=== PATIENT | female | born 1970 | race Caucasian/White ===

== ENCOUNTER 2018-04-13 09:50 | Observation (INO) ==
[2018-04-13] MEDS ORDERED: Naloxone 0.4 MG/ML INJ IVP PRN (12:22)
--- NOTE | 2018-04-13 12:24 | Internal Med History&Physical ---
Date of Encounter: 04/13/18 Internal Medicine - H&P: HPI History of present illness: Ms. Juarez is a 47 year old female Past Med Surg Social Fam HX - Past Medical History Medical history: asthma, GERD, hyperlipidemia, hypertension, migraine, thyroid disease, TIA, other Additional medical history: IBS, LUPUS Psychiatric history: anxiety, bipolar, depression - Past Surgical History Surgical History: herniorrhaphy, orthopedic, other Additional surgical history: carpal tunnel to right. left knee surgery. ablasion to female parts, tubal ligation. surgery on mouth, teeth pulled. Hernia surgery RLQ. - Social History Smoking Status: Current every day smoker Packs per day: 1 Smokeless Tobacco Status: No Alcohol use: none Drug use: none - Family History Mother Hx Family Cardiac Disorders: Yes (COPD, enlarged heart) Hx Family Musculoskeletal Disorders: Yes Hx Family Psychosocial Disorders: Yes Hx Family Medical Disorders: Yes (severe diabetic) Father Hx Family Cardiac Disorders: Yes (2 triple bypass, TIA) Internal Medicine - H&P: Meds Albuterol Sulfate [Ventolin Hfa] 1 puff IH QID 03/18/16 [History] Clopidogrel [Plavix] 75 mg PO DAILY 03/18/16 [History] Escitalopram [Lexapro] 10 mg PO HS 03/18/16 [History] Fluticasone Propionate [Flovent Hfa] 12 gm IH BID 03/18/16 [History] Levothyroxine [Synthroid] 75 mcg PO QAM 03/18/16 [History] raNITIdine HCl [Zantac] 150 mg PO QAM 03/18/16 [History] Albuterol Neb [Proventil Neb] 2.5 mg IH Q4HR #40 vial.neb 10/31/16 [Rx] Promethazine [Phenergan] 25 mg PO Q6HR PRN #14 tablet 11/23/16 [Rx] Amoxicillin 500 mg PO TID #30 tablet 06/11/17 [Rx] Guaifenesin [Mucinex] 600 mg PO BID PRN #20 tab.er.12h 06/11/17 [Rx] Guaifenesin [Mucinex] 600 mg PO BID PRN #20 tab.er.12h 06/11/17 [Rx] Naproxen [Naprosyn] 500 mg PO BID PRN #20 tablet 06/11/17 [Rx] HYDROcodone/Acet 5/325 mg [[place] 5-325 mg] 1 tab PO Q4H PRN 3 Days #14 tab 04/13 [Rx] 3 Allergy/AdvReac Type Severity Reaction Status Date / Time azithromycin Allergy Intermediate Hives Verified 11/23/16 05:21 bacitracin Allergy Rash Verified 04/13/18 06:21 sulfamethoxazole Allergy Itching Verified 11/23/16 05:21 [From Bactrim] trimethoprim [From Bactrim] Allergy Itching Verified 11/23/16 05:21 acetaminophen [From Percocet] AdvReac Itching Verified 11/23/16 05:21 codeine AdvReac See Verified 11/23/16 05:21 Comments diazepam [From Valium] AdvReac Dizziness Verified 11/23/16 05:21 Oxycodone [From Percocet] AdvReac Itching Verified 11/23/16 05:21 msg Allergy See Uncoded 11/23/16 05:21 Comments All Systems PM: A 10-system review of systems was performed and is negative for pertinent findings except as documented above in the HPI. - Constitutional Vitals: Temp Pulse Resp BP Pulse Ox 98.2 F 80 19 118/69 97 04/13/18 11:40 04/13/18 11:40 04/13/18 11:40 04/13/18 11:40 04/13/18 11:40 - Time Spent With Patient Total time spent is greater than 50% in coordination of care (as documented) at patient's floor/unit and/or counseling patient:
[2018-04-13] MEDS ORDERED: traMADol 50 MG TABLET PO PRN (12:57)
[2018-04-13] MEDS ORDERED: Acetaminophen 325 MG TABLET PO PRN (12:57)
[2018-04-13 13:07] LABS: Basophils % 0.4 %; Eosinophils % 0.2 %; Hematocrit 42.3 % (35.3-44.9); Hemoglobin 14.1 g/dL (11.5-15.4); Immature Granulocytes % 0.3 % (0-4); Lymphocytes # 2.1 K/mcL (0.6-4.6); Lymphocytes % 22.4 %; Mean Corpuscular HGB Conc 33.3 g/dL (31.6-35.5); Mean Corpuscular Hemoglobin 28.8 pg (28.0-33.3); Mean Corpuscular Volume 86.5 fL (83.0-100.0); Mean Platelet Volume 11.4 fL (9.4-12.4); Monocytes # 0.8 K/mcL (0.0-1.3); Monocytes % 8.7 %; Neutrophils # 6.4 K/mcL (1.6-8.9); Platelet Count 185 K/mcL (140-400); Red Blood Count 4.89 M/mcL (3.82-4.97)
--- NOTE | 2018-04-13 13:09 | Internal Med History&Physical ---
<EderJuan Apple - Last Filed: 04/13/18 15:44> Date of Encounter: 04/13/18 Time of Encounter: 12:30 Internal Medicine - H&P: HPI Chief complaint: Headache/N/V/Photophobia Admitted From: Intrahospital Transfer Plans for Post Hospital Care: Home History of present illness: Ms. Juarez is a 47 year old female w/PMH of asthma, GERD, HLD, HTN, migraine, thyroid disease, TIAs, IBS, and lupus presents from [facility] ED with chief complaint of headache, nausea, vomiting, photophobia, and sensitivity to sounds which began yesterday. Patient states she has history of migraines but these symptoms are not like previous migraines symptoms. No alleviating or aggravating factors. Associated sx: chills and fever. Pt. reports sinus congestion and right ear pain/neck pain but denies sick contacts, recent illness , cough, chest congestion, chest pain, shortness of breath abdominal pain, diarrhea, constipation, numbness, tingling, dizziness, lightheadedness, confusion, stroke/TIA sx, pre-syncope, and syncope. Past Med Surg Social Fam HX - Past Medical History Source: patient, old records reviewed, obtained from family Medical history: asthma, GERD, hyperlipidemia, hypertension, migraine, thyroid disease, TIA, other Additional medical history: IBS, LUPUS Psychiatric history: anxiety, bipolar, depression - Past Surgical History Surgical History: herniorrhaphy, orthopedic, other Additional surgical history: carpal tunnel to right. left knee surgery. ablasion to female parts, tubal ligation. surgery on mouth, teeth pulled. Hernia surgery RLQ. - Social History Smoking Status: Current every day smoker Packs per day: 1/2 PPD Smokeless Tobacco Status: No Alcohol use: none Drug use: none Current living situation: Home, With Family Activity Level: Independent ambulation Recent Out of Country Travel Within the Last 8 Weeks: No Exposure or Possible Exposure to Illness During Travel: No - Family History Mother Race: Family Member Ethnicity: Non- Living Status: Age at : 70 Cause of : DM complications Hx Family Cardiac Disorders: Yes (COPD, enlarged heart) Hx Family Endocrine Disorder: Yes (DM) Hx Family Musculoskeletal Disorders: Yes (Degenerative disc disease) Hx Family Psychosocial Disorders: Yes Hx Family Medical Disorders: Yes (severe diabetic) Father Race: Family Member Ethnicity: Non- Living Status: Age at : 71 Cause of : PR Hx Family Cardiac Disorders: Yes (2 triple bypass, TIA, PR) Hx Family Neurologic Disorders: Yes (TIAs) Brother Race: Family Member Ethnicity: Non- Living Status: Still Living Hx Family Cardiac Disorders: Yes (PR) Sister History Unknown: Yes Race: Family Member Ethnicity: Non- Living Status: Still Living Internal Medicine - H&P: Meds Albuterol Sulfate [Ventolin Hfa] 1 puff IH QID 03/18/16 [History] Clopidogrel [Plavix] 75 mg PO DAILY 03/18/16 [History] Escitalopram [Lexapro] 10 mg PO HS 03/18/16 [History] Fluticasone Propionate [Flovent Hfa] 12 gm IH BID 03/18/16 [History] Levothyroxine [Synthroid] 75 mcg PO QAM 03/18/16 [History] raNITIdine HCl [Zantac] 150 mg PO QAM 03/18/16 [History] Albuterol Neb [Proventil Neb] 2.5 mg IH Q4HR #40 vial.neb 10/31/16 [Rx] Promethazine [Phenergan] 25 mg PO Q6HR PRN #14 tablet 11/23/16 [Rx] Amoxicillin 500 mg PO TID #30 tablet 06/11/17 [Rx] Guaifenesin [Mucinex] 600 mg PO BID PRN #20 tab.er.12h 06/11/17 [Rx] Guaifenesin [Mucinex] 600 mg PO BID PRN #20 tab.er.12h 06/11/17 [Rx] Naproxen [Naprosyn] 500 mg PO BID PRN #20 tablet 06/11/17 [Rx] HYDROcodone/Acet 5/325 mg [[place] 5-325 mg] 1 tab PO Q4H PRN 3 Days #14 tab 04/13 [Rx] 3 Allergy/AdvReac Type Severity Reaction Status Date / Time azithromycin Allergy Intermediate Hives Verified 11/23/16 05:21 bacitracin Allergy Rash Verified 04/13/18 06:21 sulfamethoxazole Allergy Itching Verified 11/23/16 05:21 [From Bactrim] trimethoprim [From Bactrim] Allergy Itching Verified 11/23/16 05:21 acetaminophen [From Percocet] AdvReac Itching Verified 11/23/16 05:21 codeine AdvReac See Verified 11/23/16 05:21 Comments diazepam [From Valium] AdvReac Dizziness Verified 11/23/16 05:21 Oxycodone [From Percocet] AdvReac Itching Verified 11/23/16 05:21 msg Allergy See Uncoded 11/23/16 05:21 Comments All Systems PM: A 10-system review of systems was performed and is negative for pertinent findings except as documented above in the HPI. - Constitutional Constitutional: as per HPI, chills, no fever(s), no night sweats - EENT Eyes: as per HPI, photophobia, no change in vision, no discharge, no pain Ears: no ear discharge, no ear pain, no tinnitus Nose, mouth and throat: no dysphagia, no nasal discharge, no neck pain, no sore throat - Breasts Breasts: as per HPI - Cardiovascular Cardiovascular ROS IM: no chest pain, no diaphoresis, no dyspnea, no lightheadedness, no palpitations, no syncope - Respiratory Respiratory: no cough, no dyspnea, no wheezing, no excessive phlegm production - Gastrointestinal Gastrointestinal: as per HPI, nausea, vomiting, no abdominal pain, no diarrhea, no hematemesis, no hematochezia, no melena - Genitourinary Genitourinary: no change in urinary stream, no dysuria, no flank pain, no hematuria Menstruation: as per HPI - Musculoskeletal Musculoskeletal ROS IM: no numbness, no tingling - Integumentary Integumentary IM: no rash, no unusual bruising - Neurological Neurological ROS: as per HPI, dizziness, headache(s), other visual disturbances (Photophobia), no confusion, no convulsions, no focal weakness, no numbness, no tingling, no tremor(s) - Psychiatric Psychiatric: as per HPI, anxiety, depression - Endocrine Endocrine IM: as per HPI - Hematologic/Lymphatic Hematologic/Lymphatic: no easy bruising - Allergic/Immunologic Allergic/Immunologic: as per HPI - Constitutional Vitals: Temp Pulse Resp BP Pulse Ox 98.2 F 80 19 118/69 97 04/13/18 11:40 04/13/18 11:40 04/13/18 11:40 04/13/18 11:40 04/13/18 11:40 General appearance: Present: cooperative, mild distress (Headache, photophobia, sound sensitivity), A&O X 3, obese, answers questions appropriately - Head Head exam: Present: atraumatic, normocephalic - Eye Eye exam: Present: PERRL, conjuntiva pink, sclera anicteric Pupils: Present: PERRL - ENT ENT exam: Present: normal exam - Neck Neck exam general surgery: Present: supple, trachea midline. Absent: lymphadenopathy - Respiratory Respiratory exam: Present: CTAB. Absent: accessory muscle use, rales, rhonchi, wheezes - Cardiovascular Cardiovascular exam: Present: RRR, +S1, +S2. Absent: diastolic murmur, gallop, rubs, systolic murmur - GI/Abdominal GI/Abdominal exam: Present: normal bowel sounds, soft, no peritoneal signs. Absent: distended, tenderness - Rectal Rectal exam: Present: deferred - Additional comments: exam deferred. - Extremities Exam Extremities exam: Present: warm, radial pulses palpable and symmetrical. Absent : calf tenderness, cyanotic, pedal edema - Back Exam Back exam: Present: normal inspection - Neurological Exam Neurological exam: Present: alert, CN II-XII intact, oriented X3, no focal deficits. Absent: pronater drift, facial droop, speech deficit - Psychiatric Psychiatric exam: Present: anxious - Skin Skin exam: Present: dry, intact Internal Med - H&P Results - Labs CBC & Chem 7: 04/13/18 12:47 04/13/18 12:47 - Diagnostic Studies CT scan - head Additional comments: EXAMINATION: CT OF THE HEAD WITHOUT CONTRAST 04/13/2018 6:51 am TECHNIQUE: CT of the head was performed without the administration of intravenous contrast. Dose modulation, iterative reconstruction, and/or weight based adjustment of the mA/kV was utilized to reduce the radiation dose to as low as reasonably achievable. COMPARISON: 06/18/2016 HISTORY: ORDERING SYSTEM PROVIDED HISTORY: Headache Initial evaluation, new onset headaches FINDINGS: BRAIN/VENTRICLES: There is parenchymal volume loss from remote infarct right frontal lobe unchanged from prior exam. No mass or hemorrhage is seen intracranially. No midline shift is noted. Atherosclerotic vascular calcifications are present intracranially. ORBITS: The visualized portion of the orbits demonstrate no acute abnormality. SINUSES: The visualized paranasal sinuses and mastoid air cells demonstrate no acute abnormality. SOFT TISSUES/SKULL: No acute abnormality of the visualized skull or soft tissues. 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 No acute intracranial abnormality seen. D/ / 04/13/2018 07:39:33 Haris Mejia MD / renata Interpreting Provider: Haris Mejia MD - Assessment and plan (1) Headache Current Visit: Yes Status: Acute Assessment and plan: Acute headache accompanying current N/V and photophobia. Concern for aseptic/ viral meningitis versus bacterial meningitis. Elevated CSF WBC today, however glucose not depressed and WBC not as high as expected w/bacterial meningitis. Pt. reports sx began yesterday. Patient states she has history of migraines but these symptoms are not like previous migraines symptoms. No alleviating or aggravating factors. Pt. states that she has never had these sx before to this severity. ID consulted by [facility] and confirmed consult w/Dr. Larkin who will see pt. and determine need for blood cultures and possible abx coverage. I appreciate the consult and recommendations as always. Pt. discussed w/Dr. Carmen who agrees w/plan of care. Pt. is high risk for further morbidity and complications d/t risk for meningitis of unknown etiology, current sx w/o resolve, hx, and risk factors. Observation. Qualifiers: Headache type: unspecified Headache chronicity pattern: acute headache Intractability: intractable Qualified Code(s): R51 - Headache (2) Nausea and vomiting Current Visit: Yes Status: Acute Assessment and plan: Acute nausea and vomiting r/t current sx. IVP Phenergan 12.5 mg Q4HR PRN. Monitor I&O. Continue pts. PO Zantac. Qualifiers: Vomiting type: cyclical vomiting Vomiting Intractability: non-intractable Qualified Code(s): G43.A0 - Cyclical vomiting, not intractable (3) Photophobia of both eyes Current Visit: Yes Status: Acute Assessment and plan: Acute photophobia accompanying current sx. Supportive measures. IVP Phenergan 12.5 mg Q4HR PRN for N/V. Tylenol 650 mg Q6HR PRN for mild pain. Ultram for moderate pain d/t pts. allergy to codeine. (4) Asthma Current Visit: Yes Status: Chronic Assessment and plan: Hx of chronic intermittent asthma. Currently stable. Continue pts. inhalers. Qualifiers: Asthma severity: mild Asthma persistence: intermittent Asthma complication type: unspecified Qualified Code(s): J45.20 - Mild intermittent asthma, uncomplicated (5) GERD (gastroesophageal reflux disease) Current Visit: Yes Status: Chronic Assessment and plan: Hx of chronic GERD. Continue pts. PO Zantac. IVP Phenergan for N/V. Add IVP Protonix if pt. cannot tolerate PO Zantac. Qualifiers: Esophagitis presence: esophagitis presence not specified Qualified Code(s) : K21.9 - Gastro-esophageal reflux disease without esophagitis (6) HLD (hyperlipidemia) Current Visit: Yes Status: Chronic Assessment and plan: Hx of chronic HLD. Lipid panel in a.m. labs. Pt. does not currently take a statin. Consider adding Lipitor to home medications if warranted by lipid panel results. Qualifiers: Hyperlipidemia type: pure hypercholesterolemia Qualified Code(s): E78.00 - Pure hypercholesterolemia, unspecified; E78.0 - Pure hypercholesterolemia (7) HTN (hypertension) Current Visit: Yes Status: Chronic Assessment and plan: Hx of chronic HTN. Monitor pt. and VS. Hydralazine 10 mg Q6HR PRN w/parameters ordered. Qualifiers: Hypertension type: essential hypertension Qualified Code(s): I10 - Essential (primary) hypertension (8) Thyroid disease Current Visit: Yes Status: Chronic Assessment and plan: Hx of chronic thyroid disease. TSH and Free T4 in a.m. labs. Continue pts. Synthroid. (9) Hx-TIA (transient ischemic attack) Current Visit: Yes Status: Chronic Assessment and plan: Hx of TIAs. Currently stable. (10) DVT prophylaxis Current Visit: Yes Status: Acute Assessment and plan: Heparin 5,000 units SQ Q8HR for DVT prophylaxis. Monitor pt. for signs of bleeding. - Time Spent With Patient Total time spent is greater than 50% in coordination of care (as documented) at patient's floor/unit and/or counseling patient: 25 - 35 minutes <Ghanem,Pavel Rheem - Last Filed: 04/13/18 15:52> Date of Encounter: 04/13/18 Internal Medicine - H&P: HPI History of present illness: Ms. Juarez is a 47 year old female All Systems PM: A 10-system review of systems was performed and is negative for pertinent findings except as documented above in the HPI. - Constitutional Vitals: Temp Pulse Resp BP Pulse Ox 98.2 F 80 19 118/69 97 04/13/18 11:40 04/13/18 11:40 04/13/18 11:40 04/13/18 11:40 04/13/18 11:40 Exam: Gen: NAD CVS: RRR Neuro: no focal defects, CN II-XII in tact Lungs; CTAB Abd: NT/ND Ext: no edema Internal Med - H&P Results - Labs CBC & Chem 7: 04/13/18 12:47 04/13/18 12:47 Labs: Short CBC 04/13/18 Range/Units 12:47 WBC 9.4 (4.3-11.1) K/mcL Hgb 14.1 (11.5-15.4) g/dL Hct 42.3 (35.3-44.9) % Plt Count 185 (140-400) K/mcL Neutrophils # 6.4 (1.6-8.9) K/mcL BMP 04/13/18 12:47 Sodium 138 Potassium 3.5 Chloride 101 Carbon Dioxide 29 BUN 9 Creatinine 0.57 L Glucose 86 Calcium 9.8 - Assessment and plan (1) Headache Current Visit: Yes Status: Acute Qualifiers: Headache type: unspecified Headache chronicity pattern: acute headache Intractability: intractable Qualified Code(s): R51 - Headache (2) Nausea and vomiting Current Visit: Yes Status: Acute Qualifiers: Vomiting type: cyclical vomiting Vomiting Intractability: non-intractable Qualified Code(s): G43.A0 - Cyclical vomiting, not intractable (3) Photophobia of both eyes Current Visit: Yes Status: Acute (4) Asthma Current Visit: Yes Status: Chronic Qualifiers: Asthma severity: mild Asthma persistence: intermittent Asthma complication type: unspecified Qualified Code(s): J45.20 - Mild intermittent asthma, uncomplicated (5) GERD (gastroesophageal reflux disease) Current Visit: Yes Status: Chronic Qualifiers: Esophagitis presence: esophagitis presence not specified Qualified Code(s) : K21.9 - Gastro-esophageal reflux disease without esophagitis (6) HLD (hyperlipidemia) Current Visit: Yes Status: Chronic Qualifiers: Hyperlipidemia type: pure hypercholesterolemia Qualified Code(s): E78.00 - Pure hypercholesterolemia, unspecified; E78.0 - Pure hypercholesterolemia (7) HTN (hypertension) Current Visit: Yes Status: Chronic Qualifiers: Hypertension type: essential hypertension Qualified Code(s): I10 - Essential (primary) hypertension (8) Thyroid disease Current Visit: Yes Status: Chronic (9) Hx-TIA (transient ischemic attack) Current Visit: Yes Status: Chronic (10) DVT prophylaxis Current Visit: Yes Status: Acute - Time Spent With Patient Total time spent is greater than 50% in coordination of care (as documented) at patient's floor/unit and/or counseling patient: - Attending Attestation I have performed an independent evaluation of patient and agree with the Nurse Practitioner's assessment and plan. 47 year old female with history of migraines presents for worsening of headaches. LP done in ED at [facility] showed elevated protein and borderline low glucose. ID was consulted at [facility] and recommended observation. On exam, there is no focal neuro defecits. Will consult ID and await for recommendations. If symptoms worsen, will get Neurology to evaluate.
[2018-04-13 13:25] LABS: BUN/Creatinine Ratio 16 (6-26); Blood Urea Nitrogen 9 mg/dL (6-20); Calcium 9.8 mg/dL (8.6-10.3); Carbon Dioxide 29 mEq/L (23-29); Chloride 101 mEq/L (98-107); Glucose 86 mg/dL (70-105); Osmolality,Calculated 284 (280-300); Potassium 3.5 mEq/L (3.5-5.1); Sodium 138 mEq/L (136-145); eGFR For Non-African Americans > 60 (> 60)
--- NOTE | 2018-04-13 13:25 | Infectious Disease Consult ---
Date of Encounter: 04/13/18 Time of Encounter: 13:20 Assessment and Plan (1) Meningitis Status: Acute Assessment and plan: Likely aseptic meningitis as the clinical picture is not consistent with bacterial meningitis. No sepsis criteria. Status post bedside LP with TNC 294 with 8% segmented neutrophils and 59% lymphocytes. Protein mildly elevated at 127, glucose normal. Gram stain negative. Culture pending. Discontinue droplet precautions. No indication for antibiotics at this time. Clinical picture not consistent with VZV or HSV meningo/encephalitis. CT head negative. Check RIP. Requested nursing to collect DINA. Continue supportive care. (2) Headache Status: Acute Assessment and plan: Secondary to aseptic meningitis. No evidence of encephalitis. CT head negative. Pain management per the primary team. Qualifiers: Headache type: unspecified Headache chronicity pattern: acute headache Intractability: intractable Qualified Code(s): R51 - Headache (3) Asthma Status: Chronic Qualifiers: Asthma severity: mild Asthma persistence: intermittent Asthma complication type: unspecified Qualified Code(s): J45.20 - Mild intermittent asthma, uncomplicated (4) GERD (gastroesophageal reflux disease) Status: Chronic Qualifiers: Esophagitis presence: esophagitis presence not specified Qualified Code(s) : K21.9 - Gastro-esophageal reflux disease without esophagitis (5) HLD (hyperlipidemia) Status: Chronic Qualifiers: Hyperlipidemia type: pure hypercholesterolemia Qualified Code(s): E78.00 - Pure hypercholesterolemia, unspecified; E78.0 - Pure hypercholesterolemia (6) HTN (hypertension) Status: Chronic Qualifiers: Hypertension type: essential hypertension Qualified Code(s): I10 - Essential (primary) hypertension (7) Thyroid disease Status: Chronic (8) Hx-TIA (transient ischemic attack) Status: Chronic Infectious Disease HPI - Data of Consult Patient: new to practice Consult date: 04/13/18 Requesting Physician: Chani Carmen MD Primary Care Provider: Beronica Rivera CNP - Consult Narrative Reason for consult: Meningitis History of present illness: Ms. Juarez is a 47 year old female with a past medical history of asthma, GERD, hyperlipidemia, hypertension, migraine headaches, TIA, hypothyroidism, anxiety, and depression. The patient was admitted to the hospital April 13 for headache. We are consulted April 13 for further recommendations for meningitis. Briefly, the patient is a 47-year-old female with a past medical history as stated above. The patient presented to [facility] emergency department with complaints of a one-day history of severe frontal and occipital headache, worse with cough. She also reports a few days of right ear and neck pain with sinus congestion. She states she developed a headache yesterday with associated nausea and vomiting and photophobia. Upon arrival to the ER, the patient was afebrile. She was hemodynamically stable. No labs were completed. She had a CT of the head that was negative. She received adequate pain medication without control of her pain, therefore, an LP was performed at the bedside. CSF had a total neutrophil count of 294 with 8% segmented neutrophils and 59% lymphocytes. Protein was elevated at 127 with a normal glucose. The Gram stain is preliminarily negative. She was transferred here for further evaluation. Since admission, the patient has remained afebrile hemodynamically stable. Labs have been ordered and are pending. She is not currently on any antibiotics. We have been asked to evaluate and make further recommendations. During my exam today, the patient endorses the history as stated above. She reports subjective fevers and chills with rigors at home, but states her thermometer is broken. She reports the headache is persistent and worse with cough or straining. She states the pain is throbbing to the front and back of her head. She states she has photophobia, nausea, and vomiting has not been able to keep much down. She denies abdominal pain. She does report that she urinates frequently, but denies any dysuria or hematuria. She reports back pain at the site of the LP, but otherwise denies pain in her back or extremities. She reports a history of eczema, but denies any other skin rashes. She denies any oral lesions. She denies any weakness or dizziness or confusion. The patient lives at home with her . She does not work outside the home. She smokes about half pack cigarettes per day. She denies any alcohol or illicit drug use. She denies any chronic infectious diseases. She states she recently traveled to [place] to visit family. She does have dogs and cats with which she has direct contact. She denies any known sick contacts. CC: Chani Carmen MD Past Med Surg Social Fam HX - Past Medical History Attestation: Yes The following information was validated with the patient. Source: patient, old records reviewed, nursing notes reviewed Medical history: asthma, GERD, hyperlipidemia, hypertension, migraine, thyroid disease, TIA, other Additional medical history: IBS, LUPUS Psychiatric history: anxiety, bipolar, depression - Past Surgical History Surgical History: herniorrhaphy, orthopedic, other Additional surgical history: carpal tunnel to right. left knee surgery. ablasion to female parts, tubal ligation. surgery on mouth, teeth pulled. Hernia surgery RLQ. - Social History Smoking Status: Current every day smoker Packs per day: 1/2 PPD Smokeless Tobacco Status: No Alcohol use: none Drug use: none Occupational status: unemployed Current living situation: Home, With Family Activity Level: Independent ambulation Recent Out of Country Travel Within the Last 8 Weeks: No Exposure or Possible Exposure to Illness During Travel: No - Family History Mother Race: Family Member Ethnicity: Non- Living Status: Age at : 70 Cause of : DM complications Hx Family Cardiac Disorders: Yes (COPD, enlarged heart) Hx Family Endocrine Disorder: Yes (DM) Hx Family Musculoskeletal Disorders: Yes (Degenerative disc disease) Hx Family Psychosocial Disorders: Yes Hx Family Medical Disorders: Yes (severe diabetic) Father Race: Family Member Ethnicity: Non- Living Status: Age at : 71 Cause of : IL Hx Family Cardiac Disorders: Yes (2 triple bypass, TIA, [place]) Hx Family Neurologic Disorders: Yes (TIAs) Brother Race: Family Member Ethnicity: Non- Living Status: Still Living Hx Family Cardiac Disorders: Yes ([place]) Sister History Unknown: Yes Race: Family Member Ethnicity: Non- Living Status: Still Living Infectious Disease-CN:Meds Albuterol Sulfate [Ventolin Hfa] 1 puff IH QID 03/18/16 [History] Clopidogrel [Plavix] 75 mg PO DAILY 03/18/16 [History] Escitalopram [Lexapro] 10 mg PO HS 03/18/16 [History] Fluticasone Propionate [Flovent Hfa] 1 puff IH BID 03/18/16 [History] Levothyroxine [Synthroid] 75 mcg PO QAM 03/18/16 [History] Albuterol Neb [Proventil Neb] 2.5 mg IH Q4HR #40 vial.neb 10/31/16 [Rx] Acetaminophen [Extra Strength Non-Aspirin] 1,000 mg PO BID PRN 04/13/18 [History ] Amlodipine Besylate 10 mg PO DAILY 04/13/18 [History] Aspirin Enteric Coated [Aspirin EC] 81 mg PO DAILY 04/13/18 [History] Atorvastatin Calcium [Lipitor] 80 mg PO HS 04/13/18 [History] Cholecalciferol (Vitamin D3) [Dialyvite Vitamin D] 5,000 unit PO DAILY 04/13/18 [History] Cyclobenzaprine [Flexeril] 10 mg PO HS PRN 04/13/18 [History] Lisinopril [Zestril] 40 mg PO DAILY 04/13/18 [History] Loratadine [Claritin] 10 mg PO DAILY 04/13/18 [History] Montelukast [Singulair] 10 mg PO HS 04/13/18 [History] Multivitamin-Min/Iron/FA/Vit K [Multi-Day Plus Minerals Tablet] 1 each PO DAILY 04/13/18 [History] Propranolol [Inderal] 10 mg PO BID 04/13/18 [History] Ranitidine HCl [Acid Customer Strategy Manager] 150 mg PO BID 04/13/18 [History] 3 Allergy/AdvReac Type Severity Reaction Status Date / Time azithromycin Allergy Intermediate Hives Verified 11/23/16 05:21 bacitracin Allergy Rash Verified 04/13/18 06:21 sulfamethoxazole Allergy Itching Verified 11/23/16 05:21 [From Bactrim] trimethoprim [From Bactrim] Allergy Itching Verified 11/23/16 05:21 acetaminophen [From Percocet] AdvReac Itching Verified 11/23/16 05:21 codeine AdvReac See Verified 11/23/16 05:21 Comments diazepam [From Valium] AdvReac Dizziness Verified 04/13/18 17:54 Oxycodone [From Percocet] AdvReac Itching Verified 11/23/16 05:21 msg Allergy See Uncoded 11/23/16 05:21 Comments All systems: reviewed and no additional remarkable complaints except as stated Exam - Constitutional Vitals: Temp Pulse Resp BP Pulse Ox 98.2 F 80 19 118/69 97 04/13/18 11:40 04/13/18 11:40 04/13/18 11:40 04/13/18 11:40 04/13/18 11:40 General appearance: cooperative, no acute distress, obese - Head Head exam: Present: atraumatic, normal inspection, normocephalic - Eye Eye exam: Present: EOMI, normal appearance, PERRL Pupils: Present: normal accommodation - ENT ENT exam: Present: mucous membranes moist - Neck Neck exam: Present: lymphadenopathy (Right anterior cervical lymphadenopathy noted.), meningismus (Pain with flexion of the neck.), normal inspection, tenderness (Posterior neck) - Respiratory Respiratory exam: Present: CTAB. Absent: rales, respiratory distress, rhonchi, wheezes - Cardiovascular Cardiovascular exam: Present: RRR, +S1, +S2 - GI/Abdominal GI/Abdominal exam: Present: normal bowel sounds, soft. Absent: distended, tenderness - Extremities Exam Extremities exam: Present: normal inspection. Absent: joint swelling, pedal edema, tenderness - Back Exam Back exam: Present: normal inspection. Absent: CVA tenderness (L), CVA tenderness (R), paraspinal tenderness, vertebral tenderness Additional comments: LP site with dressing clean, dry, and intact. - Neurological Exam Neurological exam: Present: alert, oriented X3, no focal deficits - Psychiatric Psychiatric exam: Present: normal affect, normal mood - Skin Skin exam: Present: dry, intact, normal color, warm Infectious Disease CN: Results - Labs CBC & Chem 7: 04/14/18 06:35 04/14/18 06:35 Consult Discharge Plan - Plan Instructions: Viral Meningitis (DC), Migraine Headache (DC), Lumbar Puncture ( DC), Acute Nausea and Vomiting (DC) Referrals: Beronica Rivera CNP [Primary Care Provider] - 04/20/18 9:00 am - Attending Attestation I examined this patient and my medical decision-making was reviewed with the Resident Physician. I agree with the documented findings, disposition and treatment plan as described except to the extent set forth below. This is an addendum to original report dictated by Ebony Carvalho CNP. Please refer to Ebony's note for full details. Patient is a 47-year-old woman who came in complaining of headache and fevers and URI symptoms to outside facility. Patient had an LP done and I was called with the results were she had some pleocytosis with a nucleated cells of 294 with mildly elevated protein at 127 and normal glucose. Patient had no meningitis signs other than the headache. Patient at that point has not received Decadron or antibiotics. They called me and asked me if the 190 to transfer the patient to our facility or keep her there and I recommended they transferred here. Once the patient arrived she was doing good clinically. She had the headache. She was afebrile. She only had 1 of 3 meningitis triad. Based on the CSF in the clinical picture and the history and the physical exam I believe this is aseptic meningitis and I DC'd droplet isolation and did not start the patient on any antibiotics. Patient tells me she has not had any mosquito bites. Denies any tick bites this year she had a tick bite last season. Patient denies cold sores. Her mentation is all there and there is no other symptoms. Assessment and plan: Aseptic meningitis At this point based on her CSF and clinical picture and history I think this is asymptomatic with probably viral meningitis. No need for antibiotics at this point. Gram stain was checked and came back negative. DC droplet isolation. Chest symptomatic relief. I spent to the patient that she could have the headache and the fevers for a few days. We will continue to observe.
[2018-04-13 13:26] LABS: Prothrombin Time 11.7 Seconds (9.4-12.1)
[2018-04-13] MEDS ORDERED: *HR* Promethazine 25 MG/ML VIAL IVP PRN (13:26)
[2018-04-13] MEDS ORDERED: Pantoprazole 40 MG VIAL IVP PRN (13:30)
[2018-04-13] MEDS: 0.9 % Sodium Chloride 1,000 ML IVC SCH (14:27)
[2018-04-13] MEDS: *HR* Heparin 5,000 UNIT/ML VIAL SQ SCH ×2 (14:28→21:40)
[2018-04-13 16:37] LABS: Adenovirus Not Detected (Not Detect); Bordetella Pertussis Not Detected (Not Detect); Chlamydophila pneumoniae Not Detected (Not Detect); Coronavirus 229E Not Detected (Not Detect); Coronavirus HKU1 Not Detected (Not Detect); Coronavirus NL63 Not Detected (Not Detect); Coronavirus OC43 Not Detected (Not Detect); Human Metapneumovirus Not Detected (Not Detect); Human Rhinovirus/Enterovirus Not Detected (Not Detect); Influenza A Subtype 2009 H1 Not Detected (Not Detect); Influenza A Untypeable Not Detected (Not Detect); Influenza B Not Detected (Not Detect); Mycoplasma pneumoniae Not Detected (Not Detect); Parainfluenza Virus 1 Not Detected (Not Detect); Parainfluenza Virus 2 Not Detected (Not Detect); Parainfluenza Virus 3 Not Detected (Not Detect); Parainfluenza Virus 4 Not Detected (Not Detect); Respiratory Syncytial Virus Not Detected (Not Detect)
[2018-04-13] MEDS: Beclomethasone 80mcg MDI IH SCH (19:37)
[2018-04-13] MEDS ORDERED: Albuterol 2.5 MG/3 ML NEBULIZER IH SCH (20:00)
[2018-04-13] MEDS ORDERED: NON-FORMULARY MEDICATION 1 EACH EACH (Fluticasone Propionate [Flovent Hfa] 1 PUFF) IH SCH (21:00)
[2018-04-13] MEDS: Famotidine 20 MG TABLET PO SCH (21:39)
[2018-04-13] MEDS ORDERED: Albuterol 2.5 MG/3 ML NEBULIZER IH PRN (22:03)
[2018-04-13] MEDS: Albuterol 2.5 MG/3 ML NEBULIZER IH SCH (23:33)
[2018-04-14] MEDS: Albuterol 2.5 MG/3 ML NEBULIZER IH SCH ×4 (03:40→15:16)
[2018-04-14] MEDS: *HR* Heparin 5,000 UNIT/ML VIAL SQ SCH ×2 (06:04→13:19)
[2018-04-14 07:05] LABS: Basophils % 0.6 %; Eosinophils # 0.2 K/mcL (0.0-0.6); Eosinophils % 2.9 %; Hematocrit 39.9 % (35.3-44.9); Hemoglobin 13.3 g/dL (11.5-15.4); Immature Granulocytes % 0.2 % (0-4); Lymphocytes # 2.5 K/mcL (0.6-4.6); Lymphocytes % 38.1 %; Mean Corpuscular HGB Conc 33.3 g/dL (31.6-35.5); Mean Corpuscular Hemoglobin 29.4 pg (28.0-33.3); Mean Corpuscular Volume 88.1 fL (83.0-100.0); Mean Platelet Volume 11.2 fL (9.4-12.4); Monocytes # 0.6 K/mcL (0.0-1.3); Monocytes % 9.4 %; Neutrophils # 3.2 K/mcL (1.6-8.9); Platelet Count 192 K/mcL (140-400); Red Blood Count 4.53 M/mcL (3.82-4.97); Red Cell Distribution Width 13.1 % (11.5-14.5); Segmented Neutrophils % 48.8 %
[2018-04-14 07:10] LABS: INR 1.1
[2018-04-14 07:24] LABS: Platelet Estimate Normal (Normal)
[2018-04-14 07:27] LABS: Chol/HDL Ratio 3.5 (0-4.9)
[2018-04-14 07:28] LABS: BUN/Creatinine Ratio 21 (6-26); Blood Urea Nitrogen 13 mg/dL (6-20); Calcium 8.8 mg/dL (8.6-10.3); Carbon Dioxide 27 mEq/L (23-29); Chloride 104 mEq/L (98-107); Glucose 96 mg/dL (70-105); Osmolality,Calculated 284 (280-300); Potassium 3.5 mEq/L (3.5-5.1); Sodium 137 mEq/L (136-145); eGFR For Non-African Americans > 60 (> 60)
[2018-04-14 07:44] LABS: Thyroid Stimulating Hormone 0.178 mcIU/mL (0.340-5.600)
[2018-04-14] MEDS: Beclomethasone 80mcg MDI IH SCH (08:12)
[2018-04-14] MEDS ORDERED: Multivit/Ca/Min/Fe/FA 1 TAB TABLET PO SCH (09:00)
[2018-04-14] MEDS ORDERED: Lisinopril 20 MG TABLET PO SCH (09:00)
[2018-04-14] MEDS ORDERED: Loratadine 10 MG TABLET PO SCH (09:00)
[2018-04-14] MEDS ORDERED: Cholecalciferol (D-3) 1,000 UNIT TABLET PO SCH (09:00)
[2018-04-14] MEDS ORDERED: Aspirin Enteric Coated 81 MG Tablet PO SCH (09:00)
[2018-04-14] MEDS ORDERED: amLODIPine 5 MG TABLET PO SCH (09:00)
[2018-04-14] MEDS: 0.9 % Sodium Chloride 1,000 ML IVC SCH (09:35)
[2018-04-14] MEDS: Famotidine 20 MG TABLET PO SCH (09:37)
--- NOTE | 2018-04-14 11:35 | Internal Med Progress Note ---
Hospitalist Progress Note - Encounter Date of Encounter: 04/14/18 Time of Encounter: 11:35 - Exam Vitals: Temp Pulse Resp BP Pulse Ox 97.9 F 57 16 110/74 94 04/14/18 06:33 04/14/18 06:33 04/14/18 08:12 04/14/18 06:33 04/14/18 08:12 - Assessment and Plan (1) Headache Current Visit: Yes Status: Inactive (2) Nausea and vomiting Current Visit: Yes Status: Acute (3) Photophobia of both eyes Current Visit: Yes Status: Acute (4) Asthma Current Visit: Yes Status: Chronic (5) GERD (gastroesophageal reflux disease) Current Visit: Yes Status: Chronic (6) HLD (hyperlipidemia) Current Visit: Yes Status: Chronic (7) HTN (hypertension) Current Visit: Yes Status: Chronic (8) Thyroid disease Current Visit: Yes Status: Chronic (9) Hx-TIA (transient ischemic attack) Current Visit: Yes Status: Chronic (10) DVT prophylaxis Current Visit: Yes Status: Acute - Time Spent with Patient Total time spent is greater than 50% in coordination of care (as documented) at patient's floor/unit and/or counseling patient: Internal Medicine: Result - Labs CBC & Chem 7: 04/14/18 06:35 04/14/18 06:35 Labs: Short CBC 04/13/18 04/14/18 Range/Units 12:47 06:35 WBC 9.4 6.5 (4.3-11.1) K/mcL Hgb 14.1 13.3 (11.5-15.4) g/dL Hct 42.3 39.9 (35.3-44.9) % Plt Count 185 192 (140-400) K/mcL Neutrophils # 6.4 3.2 (1.6-8.9) K/mcL BMP 04/13/18 04/14/18 12:47 06:35 Sodium 138 137 Potassium 3.5 3.5 Chloride 101 104 Carbon Dioxide 29 27 BUN 9 13 Creatinine 0.57 L 0.62 Glucose 86 96 Calcium 9.8 8.8 - ABG Interpretation ABG results: PT/INR, D-dimer PT 12.0 Seconds (9.4-12.1) 04/14/18 06:35 Consult Discharge Plan - Plan Referrals: Beronica Rivera, REGULO [Primary Care Provider] - 09/28/18 8:30 am (1) Headache Qualifiers: Headache type: unspecified Headache chronicity pattern: acute headache Intractability: intractable Qualified Code(s): R51 - Headache (2) Nausea and vomiting Qualifiers: Vomiting type: cyclical vomiting Vomiting Intractability: non-intractable Qualified Code(s): G43.A0 - Cyclical vomiting, not intractable (4) Asthma Qualifiers: Asthma severity: mild Asthma persistence: intermittent Asthma complication type: unspecified Qualified Code(s): J45.20 - Mild intermittent asthma, uncomplicated (5) GERD (gastroesophageal reflux disease) Qualifiers: Esophagitis presence: esophagitis presence not specified Qualified Code(s): K21.9 - Gastro-esophageal reflux disease without esophagitis (6) HLD (hyperlipidemia) Qualifiers: Hyperlipidemia type: pure hypercholesterolemia Qualified Code(s): E78.00 - Pure hypercholesterolemia, unspecified; E78.0 - Pure hypercholesterolemia (7) HTN (hypertension) Qualifiers: Hypertension type: essential hypertension Qualified Code(s): I10 - Essential (primary) hypertension
[2018-04-14 11:49] VITALS: BP 114/75
--- NOTE | 2018-04-14 13:56 | Discharge Summary ---
- NOTES TO OUTPATIENT PROVIDER Notes to Outpatient Provider: Presented with MCKEE photophobia- underwent LP- seen by ID aseptic meningitis- Date of Encounter: 04/14/18 Time of Encounter: 13:36 - Discharge Diagnosis (1) Headache Priority: Primary Status: Acute Qualifiers: Headache type: unspecified Headache chronicity pattern: acute headache Intractability: intractable Qualified Code(s): R51 - Headache (2) Nausea and vomiting Priority: Secondary Status: Acute Qualifiers: Vomiting type: cyclical vomiting Vomiting Intractability: non-intractable Qualified Code(s): G43.A0 - Cyclical vomiting, not intractable (3) Photophobia of both eyes Priority: Secondary Status: Acute (4) Asthma Priority: Secondary Status: Chronic Qualifiers: Asthma severity: mild Asthma persistence: intermittent Asthma complication type: unspecified Qualified Code(s): J45.20 - Mild intermittent asthma, uncomplicated (5) GERD (gastroesophageal reflux disease) Priority: Secondary Status: Chronic Qualifiers: Esophagitis presence: esophagitis presence not specified Qualified Code(s) : K21.9 - Gastro-esophageal reflux disease without esophagitis (6) HLD (hyperlipidemia) Priority: Secondary Status: Chronic Qualifiers: Hyperlipidemia type: pure hypercholesterolemia Qualified Code(s): E78.00 - Pure hypercholesterolemia, unspecified; E78.0 - Pure hypercholesterolemia (7) HTN (hypertension) Priority: Secondary Status: Chronic Qualifiers: Hypertension type: essential hypertension Qualified Code(s): I10 - Essential (primary) hypertension (8) Thyroid disease Priority: Secondary Status: Chronic (9) Hx-TIA (transient ischemic attack) Priority: Secondary Status: Chronic Hospital course: Ms. Juarez is a 47 year old female PMH of asthma GERD HLD HTN migraine thyroid disease TIAs IBS and lupus presented from [facility] ED with chief complaint of subjective fever headache nausea vomiting photophobia and sensitivty to sound which began the day before presentation. Patient was transfered to [facility] for further tx and evaluation. Infectious disease was consulted - concern for menningitis of unknown etiology - Patient underwent LP which did show elevated protein and normal glucose Gram stain was negative CT of head negative Patient was seen by Infectious disease - aseptic meningitis - she has been afebrile with no leukocytosis she is tolerating oral intake - She states she feels much better headache much improved She is hemodynamially stable I did discuss with Ebony Carvalho TEMPER MILL OPERATOR who is ok with discharge today. Advised patient to follow up PCP since this provider knows her best and can adjust medications accordingly. Advised patient to drink plenty of liquids and cont with tylenol for pain. She verbalized understanding and is ready for discharge Discharge discussed with: patient - Time Spent with Patient Total time spent providing and/or coordinating discharge services: - Discharge Medications Home Medications: Albuterol Sulfate [Ventolin Hfa] 1 puff IH QID 03/18/16 [History] Clopidogrel [Plavix] 75 mg PO DAILY 03/18/16 [History] Escitalopram [Lexapro] 10 mg PO HS 03/18/16 [History] Fluticasone Propionate [Flovent Hfa] 1 puff IH BID 03/18/16 [History] Levothyroxine [Synthroid] 75 mcg PO QAM 03/18/16 [History] Albuterol Neb [Proventil Neb] 2.5 mg IH Q4HR #40 vial.neb 10/31/16 [Rx] Acetaminophen [Extra Strength Non-Aspirin] 1,000 mg PO BID PRN 04/13/18 [History ] Amlodipine Besylate 10 mg PO DAILY 04/13/18 [History] Aspirin Enteric Coated [Aspirin EC] 81 mg PO DAILY 04/13/18 [History] Atorvastatin Calcium [Lipitor] 80 mg PO HS 04/13/18 [History] Cholecalciferol (Vitamin D3) [Dialyvite Vitamin D] 5,000 unit PO DAILY 04/13/18 [History] Cyclobenzaprine [Flexeril] 10 mg PO HS PRN 04/13/18 [History] Lisinopril [Zestril] 40 mg PO DAILY 04/13/18 [History] Loratadine [Claritin] 10 mg PO DAILY 04/13/18 [History] Montelukast [Singulair] 10 mg PO HS 04/13/18 [History] Multivitamin-Min/Iron/FA/Vit K [Multi-Day Plus Minerals Tablet] 1 each PO DAILY 04/13/18 [History] Propranolol [Inderal] 10 mg PO BID 04/13/18 [History] Ranitidine HCl [Acid Safekeeping Clerk] 150 mg PO BID 04/13/18 [History] Allergies/Adverse Reactions: 3 Allergy/AdvReac Type Severity Reaction Status Date / Time azithromycin Allergy Intermediate Hives Verified 11/23/16 05:21 bacitracin Allergy Rash Verified 04/13/18 06:21 sulfamethoxazole Allergy Itching Verified 11/23/16 05:21 [From Bactrim] trimethoprim [From Bactrim] Allergy Itching Verified 11/23/16 05:21 acetaminophen [From Percocet] AdvReac Itching Verified 11/23/16 05:21 codeine AdvReac See Verified 11/23/16 05:21 Comments diazepam [From Valium] AdvReac Dizziness Verified 04/13/18 17:54 Oxycodone [From Percocet] AdvReac Itching Verified 11/23/16 05:21 msg Allergy See Uncoded 11/23/16 05:21 Comments Date of admission: 04/13/18 11:06 Primary care physician: Beronica Rivera CNP Consults: 04/13/18 13:04 Consult to Infectious Diseases [CONS] Routine Consulting Provider: Infectious Disease [place] Reason for Consult: Meningitis Time Notified: 13:04 Call Completed: Yes Discharging clinician: Ramandeep Rodriguez Anticipated date of discharge: 04/14/18 - Constitutional Vitals: Temp Pulse Resp BP Pulse Ox 98.0 F 62 15 114/75 95 04/14/18 11:48 04/14/18 11:48 04/14/18 11:48 04/14/18 11:48 04/14/18 11:48 General appearance: Present: cooperative, mild distress (Headache, photophobia, sound sensitivity), A&O X 3, obese, answers questions appropriately Exam: see above - Head Head exam: Present: atraumatic, normocephalic - Eye Eye exam: Present: PERRL, conjuntiva pink, sclera anicteric Pupils: Present: PERRL - Neck Neck exam general surgery: Present: supple, trachea midline. Absent: lymphadenopathy - Respiratory Respiratory exam: Present: CTAB. Absent: accessory muscle use, rales, rhonchi, wheezes - Cardiovascular Cardiovascular exam: Present: RRR, +S1, +S2. Absent: diastolic murmur, gallop, rubs, systolic murmur - GI/Abdominal GI/Abdominal exam: Present: normal bowel sounds, soft, no peritoneal signs. Absent: distended, tenderness - Extremities Exam Extremities exam: Present: warm, radial pulses palpable and symmetrical. Absent : calf tenderness, cyanotic, pedal edema - Neurological Exam Neurological exam: Present: CN II-XII intact, oriented X3, no focal deficits. Absent: pronater drift, facial droop, speech deficit - Skin Skin exam: Present: dry, intact - Patient Status Disposition: Home, Self-Care Condition: Good Functional capacity at discharge: independent ambulation Overall status at discharge: patient is back to baseline - Discharge Instructions Follow Up With: Beronica Rivera CNP [Primary Care Provider] - 04/20/18 9:00 am - Diet and Activity Activity: increase activity as tolerated Diet: advance to your usual diet
--- NOTE | 2018-04-14 14:45 | Infectious Disease Progress No ---
Date of Encounter: 04/14/18 Time of Encounter: 11:30 - Assessment and Plan (1) Meningitis Status: Acute Likely aseptic meningitis as the clinical picture is not consistent with bacterial meningitis. No sepsis criteria. Status post bedside LP with TNC 294 with 8% segmented neutrophils and 59% lymphocytes. Protein mildly elevated at 127, glucose normal. Gram stain negative. Culture no growth. No indication for antibiotics at this time. Clinical picture not consistent with VZV or HSV meningo/encephalitis. CT head negative. Check RIP. --> negative. Continue supportive care. (2) Headache Status: Acute Improved. Secondary to aseptic meningitis. No evidence of encephalitis. CT head negative. Pain management per the primary team. Qualifiers: Headache type: unspecified Headache chronicity pattern: acute headache Intractability: intractable Qualified Code(s): R51 - Headache (3) Asthma Status: Chronic Qualifiers: Asthma severity: mild Asthma persistence: intermittent Asthma complication type: unspecified Qualified Code(s): J45.20 - Mild intermittent asthma, uncomplicated (4) GERD (gastroesophageal reflux disease) Status: Chronic Qualifiers: Esophagitis presence: esophagitis presence not specified Qualified Code(s) : K21.9 - Gastro-esophageal reflux disease without esophagitis (5) HLD (hyperlipidemia) Status: Chronic Qualifiers: Hyperlipidemia type: pure hypercholesterolemia Qualified Code(s): E78.00 - Pure hypercholesterolemia, unspecified; E78.0 - Pure hypercholesterolemia (6) HTN (hypertension) Status: Chronic Qualifiers: Hypertension type: essential hypertension Qualified Code(s): I10 - Essential (primary) hypertension (7) Thyroid disease Status: Chronic (8) Hx-TIA (transient ischemic attack) Status: Chronic - Subjective Interval history: Patient seen and examined. No acute events noted overnight. States she feels much better. Reports headache and neck pain persist, but markedly improved. Denies fevers, chills, or rigors. Denies chest pain, shortness of breath, or cough. Denies nausea, vomiting, or diarrhea. Denies abdominal pain, urinary complaints, or appetite changes. Denies oral thrush or skin lesions. Infect Dis PN-Objective Data - Labs CBC & Chem 7: 04/14/18 06:35 04/14/18 06:35 Labs: Laboratory Results - last 24 hr 04/13/18 04/14/18 04/14/18 14:33 06:35 06:35 WBC 6.5 RBC 4.53 Hgb 13.3 Hct 39.9 MCV 88.1 MCH 29.4 MCHC 33.3 RDW 13.1 Plt Count 192 MPV 11.2 Immature Gran % 0.2 Seg Neutrophils % 48.8 Lymphocytes % 38.1 Monocytes % 9.4 Eosinophils % 2.9 Basophils % 0.6 Neutrophils # 3.2 Lymphocytes # 2.5 Monocytes # 0.6 Eosinophils # 0.2 Basophils # 0.0 Platelet Estimate Normal PT 12.0 INR 1.1 Sodium Potassium Chloride Carbon Dioxide BUN Creatinine Est GFR ( Amer) Est GFR (Non-Af Amer) BUN/Creatinine Ratio Glucose Calculated Osmolality Calcium Magnesium Triglycerides Cholesterol LDL Cholesterol, Calc VLDL Cholesterol, Calc HDL Cholesterol Cholesterol/HDL Ratio TSH Free T4 Chlamy pneumoniae PCR Not Detected Adenovirus (PCR) Not Detected B. pertussis DNA (PCR) Not Detected B.parapertussis DNA PCR Not Detected Coronavirus OC43 (PCR) Not Detected Coronavirus HKU1 (PCR) Not Detected Coronavirus 229E (PCR) Not Detected Coronavirus NL63 (PCR) Not Detected Human Metapneumovir PCR Not Detected Influenza A (H1) PCR Not Detected Influ A (H1N1/09) PCR Not Detected Influenza A (H3) PCR Not Detected Influenza A Untype (PCR) Not Detected Influenza Type B (PCR) Not Detected M.pneumoniae DNA (PCR) Not Detected Parainfluenza 1 (PCR) Not Detected Parainfluenza 2 (PCR) Not Detected Parainfluenza 3 (PCR) Not Detected Parainfluenza 4 (PCR) Not Detected RSV (PCR) Not Detected Entero/Rhino (PCR) Not Detected 04/14/18 04/14/18 04/14/18 06:35 06:35 06:35 WBC RBC Hgb Hct MCV MCH MCHC RDW Plt Count MPV Immature Gran % Seg Neutrophils % Lymphocytes % Monocytes % Eosinophils % Basophils % Neutrophils # Lymphocytes # Monocytes # Eosinophils # Basophils # Platelet Estimate PT INR Sodium 137 Potassium 3.5 Chloride 104 Carbon Dioxide 27 BUN 13 Creatinine 0.62 Est GFR ( Amer) > 60 Est GFR (Non-Af Amer) > 60 BUN/Creatinine Ratio 21 Glucose 96 Calculated Osmolality 284 Calcium 8.8 Magnesium 2.0 Triglycerides 96 Cholesterol 124 LDL Cholesterol, Calc 70 VLDL Cholesterol, Calc 19 HDL Cholesterol 35 L Cholesterol/HDL Ratio 3.5 TSH 0.178 L Free T4 0.79 Chlamy pneumoniae PCR Adenovirus (PCR) B. pertussis DNA (PCR) B.parapertussis DNA PCR Coronavirus OC43 (PCR) Coronavirus HKU1 (PCR) Coronavirus 229E (PCR) Coronavirus NL63 (PCR) Human Metapneumovir PCR Influenza A (H1) PCR Influ A (H1N1/09) PCR Influenza A (H3) PCR Influenza A Untype (PCR) Influenza Type B (PCR) M.pneumoniae DNA (PCR) Parainfluenza 1 (PCR) Parainfluenza 2 (PCR) Parainfluenza 3 (PCR) Parainfluenza 4 (PCR) RSV (PCR) Entero/Rhino (PCR) Cultures: Serology 04/13/18 Range/Units 14:33 Chlamy pneumoniae PCR Not Detected (Not Detect) Adenovirus (PCR) Not Detected (Not Detect) B. pertussis DNA (PCR) Not Detected (Not Detect) B.parapertussis DNA PCR Not Detected (Not Detect) Coronavirus OC43 (PCR) Not Detected (Not Detect) Coronavirus HKU1 (PCR) Not Detected (Not Detect) Coronavirus 229E (PCR) Not Detected (Not Detect) Coronavirus NL63 (PCR) Not Detected (Not Detect) Human Metapneumovir PCR Not Detected (Not Detect) Influenza A (H1) PCR Not Detected (Not Detect) Influ A (H1N1/09) PCR Not Detected (Not Detect) Influenza A (H3) PCR Not Detected (Not Detect) Influenza A Untype (PCR) Not Detected (Not Detect) Influenza Type B (PCR) Not Detected (Not Detect) M.pneumoniae DNA (PCR) Not Detected (Not Detect) Parainfluenza 1 (PCR) Not Detected (Not Detect) Parainfluenza 2 (PCR) Not Detected (Not Detect) Parainfluenza 3 (PCR) Not Detected (Not Detect) Parainfluenza 4 (PCR) Not Detected (Not Detect) RSV (PCR) Not Detected (Not Detect) Entero/Rhino (PCR) Not Detected (Not Detect) Exam - Constitutional Vitals: Temp Pulse Resp BP Pulse Ox 98.0 F 62 15 114/75 95 04/14/18 11:48 04/14/18 11:48 04/14/18 11:48 04/14/18 11:48 04/14/18 11:48 General appearance: cooperative, no acute distress, obese - Head Head exam: Present: atraumatic, normal inspection, normocephalic - Eye Eye exam: Present: EOMI, normal appearance, PERRL Pupils: Present: normal accommodation - ENT ENT exam: Present: mucous membranes moist - Neck Neck exam: Present: full ROM, normal inspection. Absent: meningismus, tenderness - Respiratory Respiratory exam: Present: CTAB. Absent: rales, respiratory distress, rhonchi, wheezes - Cardiovascular Cardiovascular exam: Present: RRR, +S1, +S2 - GI/Abdominal GI/Abdominal exam: Present: distended (obese), normal bowel sounds, soft. Absent: tenderness - Extremities Exam Extremities exam: Present: normal inspection. Absent: joint swelling, pedal edema, tenderness - Back Exam Additional comments: Ecchymosis noted at the site of the LP. Tenderness noted with palpation, but no redness, warmth, or drainage noted. - Neurological Exam Neurological exam: Present: alert, oriented X3, no focal deficits - Psychiatric Psychiatric exam: Present: normal affect, normal mood - Skin Skin exam: Present: dry, intact, normal color, warm Consult Discharge Plan - Plan Instructions: Viral Meningitis (DC), Migraine Headache (DC), Lumbar Puncture ( DC), Acute Nausea and Vomiting (DC) Referrals: Beronica Rivera CNP [Primary Care Provider] - 04/20/18 9:00 am - Attending Attestation I examined this patient and my medical decision-making was reviewed with the Resident Physician. I agree with the documented findings, disposition and treatment plan as described except to the extent set forth below.
== END 2018-04-14 15:41 | disposition home or self-care (01) ==
LOC: 3BNU
PROVIDERS: ADMIT Student in an Organized Health Care Education/Training Program; ATTEND Student in an Organized Health Care Education/Training Program